=== PATIENT | male | born 2000 | race Caucasian/White ===

== ENCOUNTER 2020-07-05 15:14 | Emergency (ER) | payer OTHER ==
[2020-07-06 13:23] LABS: SARS-CoV-2 MS2 Positive; SARS-CoV-2 N Gene Positive; SARS-CoV-2 S Gene Positive; SARS-CoV-2 by NAA DETECTED (NotDetected); SARS-CoV-2 orf1ab Positive
== END 2020-07-05 16:19 | disposition home or self-care (01) ==
LOC: ERS 15:14
DX: U07.1 COVID-19 (principal)
CPT/HCPCS: 87635; 99283; U0003

== ENCOUNTER 2021-09-18 21:10 | Emergency (ER) | payer OTHER ==
[2021-09-18] MEDS ORDERED: diphenhydrAMINE 50 MG/ML VIAL ONE (21:22)
[2021-09-18] MEDS ORDERED: EPINEPHrine 1 MG/ML VIAL ONE (21:22)
[2021-09-18] MEDS ORDERED: Famotidine/PF 20 mg/2ml Vial ONE (21:28)
[2021-09-18] MEDS ORDERED: methylPREDNISolone Sod Succ/PF 125 MG/2 ML VIAL ONE (21:32)
== END 2021-09-19 00:25 | disposition home or self-care (01) ==
LOC: ERS 21:10
DX: T78.2XXA Anaphylactic shock, unspecified, initial encounter (principal)
CPT/HCPCS: 93005; 96374; 96375; J0171; J1200; J2930; S0028